=== PATIENT | male | born 1965 | race Caucasian/White ===

== ENCOUNTER → 2022-07-26 09:29 | Outpatient (CLI) | payer BC, SELFPAY ==
--- NOTE | 2022-07-26 09:32 | DI.US.S_ITS ---
PROCEDURE: US SCROTUM INDICATIONS: TESTICULAR MASS TECHNIQUE: Real-time scanning was performed of the scrotum and testicles, with image documentation. Color and pulse Doppler interrogation was performed of both testicles. COMPARISON: None. FINDINGS: Right: Testicle is normal in size at 4.5 x 2.4 x 3.2 cm, and homogenous in echotexture. Epididymis is normal in overall size and morphology. No hydrocele or varicoceles. Overlying scrotal skin is normal in thickness. Left: Testicle is normal in size at 4.2 x 2.2 x 2.8 cm, and homogeneous in echotexture. Epididymis is normal in overall size and morphology. No hydrocele . Prominent vessels are noted in left scrotum. Overlying scrotal skin is normal in thickness. Doppler: Color and pulse Doppler demonstrate normal and symmetric arterial flow in both testicles. IMPRESSION: Suggestion of mild left-sided varicoceles. Normal appearing bilateral testes and epididymi. No hydroceles. Dictated by: Kenyon Magdaleno M.D. on 07/26/2022 at 11:05 Approved by: Kenyon Magdaleno M.D. on 07/26/2022 at 11:06
== END ==
PROVIDERS: PCP Family Medicine; Referring Provider Family Medicine; Visit Provider Family Medicine
DX: N50.89 Other specified disorders of the male genital organs (principal)
CPT/HCPCS: 76870; 93976

== ENCOUNTER 2022-07-29 14:18 | Observation (INO) | payer BC, SELFPAY ==
[2022-07-29 14:33] VITALS: BP 161/79; PULSE 78; RESP 20; TEMP 36.9; O2SAT 97; BMI 38.3
[2022-07-29 17:00] LABS: Add Manual Diff / Slide Review NO; Basophils Absolute Auto 0 /uL (0-100); Basophils Percent Auto 0.3 % (0-2); Eosinophils Absolute Auto 100 /uL (0-450); Eosinophils Percent Auto 1.6 % (2-4); Hematocrit 40.4 % (41-53); Hemoglobin 14.1 g/dL (13.5-17.5); Lymphocytes Absolute Auto 1400 /uL (1100-4500); Mean Corpuscular Hemoglobin 29.4 PG (26-34); Monocytes Absolute Auto 600 /uL (0-900); Monocytes Percent Auto 8.9 % (3-14); Neutrophils Absolute Auto 4300 /uL (1500-7000); Neutrophils Percent Auto 67.2 % (50-75); Platelet Count 138 X10^3/uL (150-400); Red Blood Cell Count 4.81 X10^6/uL (4.5-5.9); White Blood Cell Count 6.4 X10^3/uL (4.5-11.0)
[2022-07-29 17:02] LABS: Alanine Aminotransferase 24 IU/L (<50); Albumin 4.2 g/dL (3.5-5.0); Albumin Globulin Ratio 1.6 (1.0-2.8); Alkaline Phosphatase 60 U/L (38-126); Aspartate Aminotransferase 27 IU/L (17-59); Bilirubin Total 0.8 mg/dL (0.2-1.3); Blood Urea Nitrogen 18 mg/dL (9-20); Carbon Dioxide 26 mmol/L (22-32); Chloride 104 mmol/L (98-107); Estimated Glomerular Filt Rate > 60 mL/min (>60); Globulin 2.7 g/dL (1.7-4.1); Glucose 92 mg/dL (70-100); HEMOLYSIS 16 (0-50); Lipase 536 U/L (23-300); Potassium 4.4 mmol/L (3.4-5.1); Sodium 136 mmol/L (137-145); Total Protein 6.9 g/dL (6.3-8.2)
[2022-07-29] MEDS: KETOROLAC 30 MG/ML VIAL IV (18:33)
--- NOTE | 2022-07-29 19:32 | DI.CT.S_ITS ---
PROCEDURE: CT ABDOMEN PELVIS W CON INDICATIONS: Stretcher/ eval pancreas TECHNIQUE: After the administration of IV contrast, axial sections were acquired from the lung bases to the pubic symphysis. Coronal and sagittal reformats were performed. For radiation dose reduction, the following was used: automated exposure control, adjustment of mA and/or kV according to patient size. COMPARISON: [facility], CT, KIDNEY/ URETER/BLADDER, 05/10/2016, 10:53. FINDINGS: Image quality: Excellent. Lung bases: There is minimal scarring in the lung bases. Heart: Heart is normal in size. ABDOMEN: Liver: No mass lesion. Gallbladder: There are few dependent calcified gallstones in the gallbladder without wall thickening or pericholecystic fluid. Biliary ducts: No biliary ductal dilatation. Pancreas: Unremarkable. Spleen: Normal in size. Adrenal Glands: No adrenal nodules. Kidneys and Ureters: No hydronephrosis. Stomach and Bowel: Stomach and small bowel loops are normal in caliber and wall thickness. The appendix is normal in appearance. There is colonic diverticulosis with associated diverticular and segmental colonic wall thickening in the sigmoid colon with pericolonic fat stranding and small amount of adjacent free fluid. The findings are consistent with acute diverticulitis. A small adjacent loculated fluid collection lateral to the sigmoid colon measuring up to 2.6 x 1.5 cm in transverse dimension on series 2, image 70 may reflect a small developing diverticular abscess. No macroscopic free air. Ventral Wall: There is a small fat-containing umbilical hernia. Abdominal Nodes: No retroperitoneal or mesenteric adenopathy by size criteria. Vessels: Aorta and inferior vena cava are normal in size. PELVIS: Pelvic Organs: Unremarkable. Bladder: Unremarkable. Pelvic Nodes: No enlarged lymph nodes. Miscellaneous: No inguinal hernias are seen. Bones: Visualized osseous structures demonstrate no suspicious focal lesions. IMPRESSION: 1. Acute diverticulitis in the sigmoid colon with an adjacent small pericolonic fluid collection suspicious for a developing diverticular abscess. No macroscopic free air. 2. Cholelithiasis without CT evidence of acute cholecystitis. Dictated by: Silviano Gage M.D. on 07/29/2022 at 20:44 Approved by: Silviano Gage M.D. on 07/29/2022 at 20:48
--- NOTE | 2022-07-29 19:38 | ED_ITS ---
HPI - Abdominal Pain <Ifeanyi Herrera PA-C - Last Filed: 07/29/22 19:49> General Chief Complaint: Abdominal Pain Stated Complaint: Abd pain x a wk Time Seen by Provider: 07/29/22 16:27 Source: patient Mode of arrival: Ambulatory History of Present Illness HPI narrative: Patient is a 56-year-old male who presents to the emergency room today with complaint of abdominal pain for 3 weeks. Describes abdominal pain as being mostly on the left side the lower abdomen. Patient has an associated lower mid abdominal pain the patient describes as being deep in the abdomen in the center below the umbilicus. States he was seen on Monday and ultrasound of his testicle done. Also sent in a center abdominal pain feels like cramps. The pain has been getting progressively worse over time and the patient is concerned with his health.. Denies any or GI concerns and also denies any chest pain or shortness of breath. Admits to being an alcoholic drink but very moderate to low consumption. Pain comes and goes and is about a 3 in 1 is the worst is about a 7. Related Data Home Medications Medication Instructions Recorded Confirmed ASCORBIC ACID (VITAMIN C) 500 mg PO Q DAY ##0 12/28/11 07/29/22 Fish Oil (#OMEGA-3) 1,000 mg PO Q DAY ##0 12/28/11 07/29/22 cholecalciferol (vitamin D3) 50 1,000 iu PO Q DAY ##0 12/28/11 07/29/22 mcg (2,000 unit) capsule (Vitamin D3) Allergies Allergy/AdvReac Type Severity Reaction Status Date / Time amoxicillin [AMOXICILLIN] Allergy Intermediate Verified 07/29/22 14:37 Review of Systems <Ifeanyi Herrera PA-C - Last Filed: 07/29/22 19:49> Review of Systems Narrative: R.O.S.: General: No fever, chills or fatigue. Cardiovascular: No chest pain or palpitations Respiratory: No S.O.B. HEENT: No congestion, ear pain, rhinorrhea, sore throat or tinnitus Gastrointestinal: Abdominal pain Skin: No rash or associated abnormalities Musculoskeletal: No pain in muscles or joints, no limitation of range of motion, no paresthesia or numbness. ?? Neurological: Awake, alert and in not apparent distress. No Headaches, changes in vision or other related neurological concerns. Patient History <Ifeanyi Herrera PA-C - Last Filed: 07/29/22 19:49> Surgical History (Updated 07/29/22 @ 23:24 by CLARICE Cheek) History of open reduction and internal fixation (ORIF) procedure Hx of arthroscopy Family History (Updated 07/29/22 @ 23:21 by CLARICE Cheek) Mother Alive and well Father COPD (chronic obstructive pulmonary disease) Social History household members: spouse Smoking Status: Former smoker alcohol intake: current Smoking Status: Former smoker alcohol intake frequency: a few times a week Substance Use Type: does not use Exam <Ifeanyi Herrera PA-C - Last Filed: 07/29/22 19:49> Initial Vital Signs Initial Vital Signs: Vital Signs Temperature 98.4 F 07/29/22 14:33 Pulse Rate 78 07/29/22 14:33 Respiratory Rate 20 07/29/22 14:33 Blood Pressure 161/79 H 07/29/22 14:33 Pulse Oximetry 97 07/29/22 14:33 Oxygen Delivery Method 07/29/22 14:33 <Paul Spain DO - Last Filed: 07/30/22 05:13> Initial Vital Signs Initial Vital Signs: Vital Signs Temperature 98.4 F 07/29/22 14:33 Pulse Rate 78 07/29/22 14:33 Respiratory Rate 20 07/29/22 14:33 Blood Pressure 161/79 H 07/29/22 14:33 Pulse Oximetry 97 07/29/22 14:33 Oxygen Delivery Method 07/29/22 14:33 Course <Ifeanyi Herrera PA-C - Last Filed: 07/29/22 19:49> Orders Ordered: ED Orders 07/29/22 21:35 COVID19 -Nasal RAPID/Pre-Proc Stat Acetaminophen (Acetaminophen 325 Mg Tablet) 650 mg PO Q6HR PRN PRN Reason: Fever/Mild Pain (1-3) Heparin Sodium (Porcine) (Heparin 5,000 Unit/Ml Vial) 5,000 unit SUBCUT BID [facility] Last Admin: 07/29/22 23:42 Dose: 5,000 unit Documented By: SH Sodium Chloride (Normal Saline 0.45%) 1,000 mls @ 100 mls/hr IV CONT [facility] Last Admin: 07/29/22 23:42 Dose: 100 mls/hr Documented By: AYDEN Levofloxacin (Levaquin) 750 mg in 150 mls @ 100 mls/hr IV Q24H [facility] Metronidazole (Flagyl) 500 mg in 100 mls @ 100 mls/hr IV Q6H [facility] Last Admin: 07/30/22 03:46 Dose: 100 mls/hr Documented By: AYDEN Ondansetron HCl (Ondansetron 4 Mg/2 Ml Inj) 4 mg IV Q6HR PRN PRN Reason: Nausea And Vomiting Tramadol HCl (Tramadol 50 Mg Tablet) 50 mg PO Q4H PRN PRN Reason: Pain, Moderate (4-6) Discontinued Medications Metronidazole (Flagyl) 500 mg in 100 mls @ 100 mls/hr IV NOW ONE Stop: 07/29/22 22:19 Last Infusion: 07/30/22 00:23 Dose: 0 mls/hr Documented By: Admin: 07/29/22 23:23 Dose: 100 mls/hr Documented By: AYDEN Levofloxacin (Levaquin) 750 mg in 150 mls @ 100 mls/hr IV NOW ONE Stop: 07/29/22 22:51 Last Infusion: 07/29/22 23:10 Dose: 0 mls/hr Documented By: Admin: 07/29/22 21:39 Dose: 100 mls/hr Documented By: PAULETTE Ketorolac Tromethamine (Ketorolac 30 Mg/Ml Vial) 30 mg IV NOW ONE Stop: 07/29/22 18:26 Last Admin: 07/29/22 18:33 Dose: 30 mg Documented By: [facility] Vital Signs Vital signs: Vital Signs - 8 hr 07/29/22 14:33 Temperature 98.4 F Pulse Rate 78 Respiratory Rate 20 Blood Pressure 161/79 H Pulse Oximetry 97 Oxygen Delivery Method Room Air <Paul Spain DO - Last Filed: 07/30/22 05:13> Orders Ordered: ED Orders 07/29/22 21:35 COVID19 -Nasal RAPID/Pre-Proc Stat Acetaminophen (Acetaminophen 325 Mg Tablet) 650 mg PO Q6HR PRN PRN Reason: Fever/Mild Pain (1-3) Heparin Sodium (Porcine) (Heparin 5,000 Unit/Ml Vial) 5,000 unit SUBCUT BID [facility] Last Admin: 07/29/22 23:42 Dose: 5,000 unit Documented By: AYDEN Sodium Chloride (Normal Saline 0.45%) 1,000 mls @ 100 mls/hr IV CONT [facility] Last Admin: 07/29/22 23:42 Dose: 100 mls/hr Documented By: AYDEN Levofloxacin (Levaquin) 750 mg in 150 mls @ 100 mls/hr IV Q24H [facility] Metronidazole (Flagyl) 500 mg in 100 mls @ 100 mls/hr IV Q6H [facility] Last Admin: 07/30/22 03:46 Dose: 100 mls/hr Documented By: AYDEN Ondansetron HCl (Ondansetron 4 Mg/2 Ml Inj) 4 mg IV Q6HR PRN PRN Reason: Nausea And Vomiting Tramadol HCl (Tramadol 50 Mg Tablet) 50 mg PO Q4H PRN PRN Reason: Pain, Moderate (4-6) Discontinued Medications Metronidazole (Flagyl) 500 mg in 100 mls @ 100 mls/hr IV NOW ONE Stop: 07/29/22 22:19 Last Infusion: 07/30/22 00:23 Dose: 0 mls/hr Documented By: Admin: 07/29/22 23:23 Dose: 100 mls/hr Documented By: AYDEN Levofloxacin (Levaquin) 750 mg in 150 mls @ 100 mls/hr IV NOW ONE Stop: 07/29/22 22:51 Last Infusion: 07/29/22 23:10 Dose: 0 mls/hr Documented By: Admin: 07/29/22 21:39 Dose: 100 mls/hr Documented By: PAULETTE Ketorolac Tromethamine (Ketorolac 30 Mg/Ml Vial) 30 mg IV NOW ONE Stop: 07/29/22 18:26 Last Admin: 07/29/22 18:33 Dose: 30 mg Documented By: [facility] Vital Signs Vital signs: Vital Signs - 8 hr 07/29/22 14:33 Temperature 98.4 F Pulse Rate 78 Respiratory Rate 20 Blood Pressure 161/79 H Pulse Oximetry 97 Oxygen Delivery Method Room Air MDM - Abdominal Pain <Ifeanyi Herrera PA-C - Last Filed: 07/29/22 19:49> Lab Data Result diagrams: 07/29/22 16:32 07/29/22 16:32 Labs: Lab Results 07/29/22 07/29/22 07/29/22 Range/Units 16:32 16:32 20:04 WBC 6.4 (4.5-11.0) X10^3/uL RBC 4.81 (4.5-5.9) X10^6/uL Hgb 14.1 (13.5-17.5) g/dL Hct 40.4 L (41-53) % MCV 84.0 (80-100) fL MCH 29.4 (26-34) PG MCHC 35.0 (30-36) % RDW 15.0 H (11.6-14.8) % Plt Count 138 L (150-400) X10^3/uL Neut % (Auto) 67.2 (50-75) % Lymph % (Auto) 22.0 L (25-40) % [place] % (Auto) 8.9 (3-14) % Eos % (Auto) 1.6 L (2-4) % Baso % (Auto) 0.3 (0-2) % Neut # (Auto) 4300 (8190-9601) /uL Lymph # (Auto) 1400 (2289-4612) /uL [place] # (Auto) 600 (0-900) /uL Eos # (Auto) 100 (0-450) /uL Baso # (Auto) 0 (0-100) /uL Sodium 136 L (137-145) mmol/L Potassium 4.4 (3.4-5.1) mmol/L Chloride 104 (98-107) mmol/L Carbon Dioxide 26 (22-32) mmol/L BUN 18 (9-20) mg/dL Creatinine 0.90 (0.66-1.25) mg/dL Estimated GFR > 60 (>60) mL/min BUN/Creatinine Ratio 20.0 (6-22) Glucose 92 (70-100) mg/dL Calcium 9.0 (8.4-10.2) mg/dL Total Bilirubin 0.8 (0.2-1.3) mg/dL AST 27 (17-59) IU/L ALT 24 (<50) IU/L Alkaline Phosphatase 60 (38-126) U/L Total Protein 6.9 (6.3-8.2) g/dL Albumin 4.2 (3.5-5.0) g/dL Globulin 2.7 (1.7-4.1) g/dL Albumin/Globulin Ratio 1.6 (1.0-2.8) Lipase 536 H (23-300) U/L Urine Color Yellow Urine Appearance Sl cloudy Urine pH 7.0 (4.5-8.0) Ur Specific [place] 1.015 (1.000-1.035) Urine Protein Negative (Negative) Urine Glucose (UA) Negative (Negative) g/dL Urine Ketones Negative (NEGATIVE) Urine Occult Blood Negative (Negative) Urine Nitrate Negative (Negative) Urine Bilirubin Negative (NEGATIVE) Urine Urobilinogen 0.2 (0.2) E.U./dL Ur Leukocyte Esterase Negative (NEGATIVE) Urine RBC None seen (0-5/HPF) Urine WBC 0-1/hpf (0-5/HPF) Ur Squamous Epith Cells 0-1 /hpf (0-5/HPF) Amorphous Sediment 2+ Urine Bacteria None seen (None) Urine Mucus 2+ H (Negative) Ur Culture Indicated? Cult not indicated SARS-CoV-2 (PCR) (Negative) 07/29/22 Range/Units 21:35 WBC (4.5-11.0) X10^3/uL RBC (4.5-5.9) X10^6/uL Hgb (13.5-17.5) g/dL Hct (41-53) % MCV (80-100) fL MCH (26-34) PG MCHC (30-36) % RDW (11.6-14.8) % Plt Count (150-400) X10^3/uL Neut % (Auto) (50-75) % Lymph % (Auto) (25-40) % [place] % (Auto) (3-14) % Eos % (Auto) (2-4) % Baso % (Auto) (0-2) % Neut # (Auto) (8504-8893) /uL Lymph # (Auto) (6617-0607) /uL [place] # (Auto) (0-900) /uL Eos # (Auto) (0-450) /uL Baso # (Auto) (0-100) /uL Sodium (137-145) mmol/L Potassium (3.4-5.1) mmol/L Chloride (98-107) mmol/L Carbon Dioxide (22-32) mmol/L BUN (9-20) mg/dL Creatinine (0.66-1.25) mg/dL Estimated GFR (>60) mL/min BUN/Creatinine Ratio (6-22) Glucose (70-100) mg/dL Calcium (8.4-10.2) mg/dL Total Bilirubin (0.2-1.3) mg/dL AST (17-59) IU/L ALT (<50) IU/L Alkaline Phosphatase (38-126) U/L Total Protein (6.3-8.2) g/dL Albumin (3.5-5.0) g/dL Globulin (1.7-4.1) g/dL Albumin/Globulin Ratio (1.0-2.8) Lipase (23-300) U/L Urine Color Urine Appearance Urine pH (4.5-8.0) Ur Specific [place] (1.000-1.035) Urine Protein (Negative) Urine Glucose (UA) (Negative) g/dL Urine Ketones (NEGATIVE) Urine Occult Blood (Negative) Urine Nitrate (Negative) Urine Bilirubin (NEGATIVE) Urine Urobilinogen (0.2) E.U./dL Ur Leukocyte Esterase (NEGATIVE) Urine RBC (0-5/HPF) Urine WBC (0-5/HPF) Ur Squamous Epith Cells (0-5/HPF) Amorphous Sediment Urine Bacteria (None) Urine Mucus (Negative) Ur Culture Indicated? SARS-CoV-2 (PCR) Negative (Negative) Imaging Data US testicle: Radiologist's Impression: PROCEDURE:? US SCROTUM ? INDICATIONS:? TESTICULAR MASS ? TECHNIQUE:? Real-time scanning was performed of the scrotum and testicles, with image documentation.? Color and pulse Doppler interrogation was performed of both testicles.? ? COMPARISON:? None. ? FINDINGS:? ? Right:? Testicle is normal in size at 4.5 x 2.4 x 3.2 cm, and homogenous in echotexture.? Epididymis is normal in overall size and morphology.? No hydrocele or varicoceles.? Overlying scrotal skin is normal in thickness.? ? Left:? Testicle is normal in size at 4.2 x 2.2 x 2.8 cm, and homogeneous in echotexture.? Epididymis is normal in overall size and morphology.? No hydrocele .? Prominent vessels are noted in left scrotum.? Overlying scrotal skin is normal in thickness.? ? Doppler:? Color and pulse Doppler demonstrate normal and symmetric arterial flow in both testicles.? ? IMPRESSION:? Suggestion of mild left-sided varicoceles.? Normal appearing bilateral testes and epididymi.? No hydroceles.? ? ? Dictated by: Kenyon Magdaleno M.D. on 07/26/2022 at 11:05 ? ? Approved by: Kenyon Magdaleno M.D. on 07/26/2022 at 11:06? MDM Narrative Medical decision making narrative: Patient is a 55-year-old male who presents to the emergency room today with complaint of lower abdominal pain for III weeks. States pain is mostly in his lower left and mid abdomen. Initially thought the pain was related to his left testicle and had an ultrasound done Monday. Ultrasound results revealed mild left-sided varicoceles and otherwise normal exam. Labs ordered and revealed an elevated lipase of 536. Physical exam revealed vague discomfort in the mid lower abdominal area. Exam was otherwise unremarkable. CT scan of the abdomen and pelvis with contrast was ordered to rule out any emergent concerns. <Paul Spain, DO - Last Filed: 07/30/22 05:13> Lab Data Labs: Lab Results 07/29/22 07/29/22 07/29/22 Range/Units 16:32 16:32 20:04 WBC 6.4 (4.5-11.0) X10^3/uL RBC 4.81 (4.5-5.9) X10^6/uL Hgb 14.1 (13.5-17.5) g/dL Hct 40.4 L (41-53) % MCV 84.0 (80-100) fL MCH 29.4 (26-34) PG MCHC 35.0 (30-36) % RDW 15.0 H (11.6-14.8) % Plt Count 138 L (150-400) X10^3/uL Neut % (Auto) 67.2 (50-75) % Lymph % (Auto) 22.0 L (25-40) % [place] % (Auto) 8.9 (3-14) % Eos % (Auto) 1.6 L (2-4) % Baso % (Auto) 0.3 (0-2) % Neut # (Auto) 4300 (6914-4962) /uL Lymph # (Auto) 1400 (9743-9974) /uL [place] # (Auto) 600 (0-900) /uL Eos # (Auto) 100 (0-450) /uL Baso # (Auto) 0 (0-100) /uL Sodium 136 L (137-145) mmol/L Potassium 4.4 (3.4-5.1) mmol/L Chloride 104 (98-107) mmol/L Carbon Dioxide 26 (22-32) mmol/L BUN 18 (9-20) mg/dL Creatinine 0.90 (0.66-1.25) mg/dL Estimated GFR > 60 (>60) mL/min BUN/Creatinine Ratio 20.0 (6-22) Glucose 92 (70-100) mg/dL Calcium 9.0 (8.4-10.2) mg/dL Total Bilirubin 0.8 (0.2-1.3) mg/dL AST 27 (17-59) IU/L ALT 24 (<50) IU/L Alkaline Phosphatase 60 (38-126) U/L Total Protein 6.9 (6.3-8.2) g/dL Albumin 4.2 (3.5-5.0) g/dL Globulin 2.7 (1.7-4.1) g/dL Albumin/Globulin Ratio 1.6 (1.0-2.8) Lipase 536 H (23-300) U/L Urine Color Yellow Urine Appearance Sl cloudy Urine pH 7.0 (4.5-8.0) Ur Specific [place] 1.015 (1.000-1.035) Urine Protein Negative (Negative) Urine Glucose (UA) Negative (Negative) g/dL Urine Ketones Negative (NEGATIVE) Urine Occult Blood Negative (Negative) Urine Nitrate Negative (Negative) Urine Bilirubin Negative (NEGATIVE) Urine Urobilinogen 0.2 (0.2) E.U./dL Ur Leukocyte Esterase Negative (NEGATIVE) Urine RBC None seen (0-5/HPF) Urine WBC 0-1/hpf (0-5/HPF) Ur Squamous Epith Cells 0-1 /hpf (0-5/HPF) Amorphous Sediment 2+ Urine Bacteria None seen (None) Urine Mucus 2+ H (Negative) Ur Culture Indicated? Cult not indicated SARS-CoV-2 (PCR) (Negative) 07/29/22 Range/Units 21:35 WBC (4.5-11.0) X10^3/uL RBC (4.5-5.9) X10^6/uL Hgb (13.5-17.5) g/dL Hct (41-53) % MCV (80-100) fL MCH (26-34) PG MCHC (30-36) % RDW (11.6-14.8) % Plt Count (150-400) X10^3/uL Neut % (Auto) (50-75) % Lymph % (Auto) (25-40) % [place] % (Auto) (3-14) % Eos % (Auto) (2-4) % Baso % (Auto) (0-2) % Neut # (Auto) (4256-5182) /uL Lymph # (Auto) (6400-3620) /uL [place] # (Auto) (0-900) /uL Eos # (Auto) (0-450) /uL Baso # (Auto) (0-100) /uL Sodium (137-145) mmol/L Potassium (3.4-5.1) mmol/L Chloride (98-107) mmol/L Carbon Dioxide (22-32) mmol/L BUN (9-20) mg/dL Creatinine (0.66-1.25) mg/dL Estimated GFR (>60) mL/min BUN/Creatinine Ratio (6-22) Glucose (70-100) mg/dL Calcium (8.4-10.2) mg/dL Total Bilirubin (0.2-1.3) mg/dL AST (17-59) IU/L ALT (<50) IU/L Alkaline Phosphatase (38-126) U/L Total Protein (6.3-8.2) g/dL Albumin (3.5-5.0) g/dL Globulin (1.7-4.1) g/dL Albumin/Globulin Ratio (1.0-2.8) Lipase (23-300) U/L Urine Color Urine Appearance Urine pH (4.5-8.0) Ur Specific [place] (1.000-1.035) Urine Protein (Negative) Urine Glucose (UA) (Negative) g/dL Urine Ketones (NEGATIVE) Urine Occult Blood (Negative) Urine Nitrate (Negative) Urine Bilirubin (NEGATIVE) Urine Urobilinogen (0.2) E.U./dL Ur Leukocyte Esterase (NEGATIVE) Urine RBC (0-5/HPF) Urine WBC (0-5/HPF) Ur Squamous Epith Cells (0-5/HPF) Amorphous Sediment Urine Bacteria (None) Urine Mucus (Negative) Ur Culture Indicated? SARS-CoV-2 (PCR) Negative (Negative) Imaging Data CT scan - abdomen/pelvis: Radiologist's Impression: [address] [address] [address] Scan Report Signed Patient: Vinod Kulkarni MR#: [id number] : 1965 Acct:[id number] Age/Sex: 56 / M Date of Service: 07/29/22 Loc: ED Accession Number: [id number] ?? Procedure: CT abdomen pelvis w con Ordering Provider: Ifeanyi Herrera P.A-C PROCEDURE:? CT ABDOMEN PELVIS W CON ? INDICATIONS:? Stretcher/ eval pancreas ? TECHNIQUE:? After the administration of IV contrast, axial sections were acquired from the lung bases to the pubic symphysis.? Coronal and sagittal reformats were performed.? For radiation dose reduction, the following was used:? automated exposure control, adjustment of mA and/or kV according to patient size. ? COMPARISON:? [facility], CT, KIDNEY/ URETER/BLADDER, 05/10/2016, 10:53. ? FINDINGS:? Image quality:? Excellent.? ? Lung bases:? There is minimal scarring in the lung bases.? ? Heart:? Heart is normal in size. ? ? ABDOMEN: Liver:? No mass lesion. Gallbladder:? There are few dependent calcified gallstones in the gallbladder without wall thickening or pericholecystic fluid. Biliary ducts:? No biliary ductal dilatation.? ? Pancreas:? Unremarkable.? ? Spleen:? Normal in size.? ? Adrenal Glands:? No adrenal nodules.? ? Kidneys and Ureters:? No hydronephrosis.? ? ? Stomach and Bowel:? Stomach and small bowel loops are normal in caliber and wall thickness.? The appendix is normal in appearance.? There is colonic diverticulosis with associated diverticular and segmental colonic wall thickening in the sigmoid colon with pericolonic fat stranding and small amount of adjacent free fluid.? The findings are consistent with acute diverticulitis.? A small adjacent loculated fluid collection lateral to the sigmoid colon measuring up to 2.6 x 1.5 cm in transverse dimension on series 2, image 70 may reflect a small developing diverticular abscess.? No macroscopic free air.? ? Ventral Wall: ? There is a small fat-containing umbilical hernia. Abdominal Nodes:? No retroperitoneal or mesenteric adenopathy by size criteria.? Vessels:? Aorta and inferior vena cava are normal in size.? ? PELVIS: Pelvic Organs:? Unremarkable.? ? Bladder:? Unremarkable.? ? Pelvic Nodes: No enlarged lymph nodes.? Miscellaneous: No inguinal hernias are seen. ? ? ? Bones:? Visualized osseous structures demonstrate no suspicious focal lesions. ? IMPRESSION:? ? 1.? Acute diverticulitis in the sigmoid colon with an adjacent small pericolonic fluid collection suspicious for a developing diverticular abscess.? No macroscopic free air. ? 2. Cholelithiasis without CT evidence of acute cholecystitis. ? ? Dictated by: Silviano Gage M.D. on 07/29/2022 at 20:44 ? ? Approved by: Silviano Gage M.D. on 07/29/2022 at 20:48 ? Discharge Plan Departure Patient Disposition: Admitted As Inpatient Clinical Impression: Diverticulitis Admit Date/Time: 07/29/22 22:37 Admit Provider: Cheri Madden
[2022-07-29 20:07] LABS: Appearance Urine UA SL CLOUDY; Bilirubin Urine UA NEGATIVE (NEGATIVE); Color Urine UA YELLOW; Glucose Urine UA NEGATIVE (Negative); Ketones Urine UA NEGATIVE (NEGATIVE); Leukocyte Esterase Urine UA NEGATIVE (NEGATIVE); Nitrite Urine UA NEGATIVE (Negative); Occult Blood Urine UA NEGATIVE (Negative); Protein Urine UA NEGATIVE (Negative); Specific Gravity Urine UA 1.015 (1.000-1.035); Urobilinogen Urine UA 0.2 E.U./dL (0.2)
[2022-07-29 20:16] LABS: RBC Urine None Seen (0-5/HPF); WBC Urine 0-1/HPF (0-5/HPF)
[2022-07-29 20:17] LABS: Amorphous Sediment Urine 2+; Bacteria Urine None Seen; Culture Indicated Urine Cult Not Indicated; Mucus Urine 2+ (Negative); Squamous Epithelial Cell Urine 0-1 /HPF (0-5/HPF)
[2022-07-29] MEDS: levoFLOXacin 750 MG/150 ML PIGGYBACK 100 MG IV (21:39)
[2022-07-29 22:12] LABS: COVID19 -Nasal RAPID Negative (Negative)
[2022-07-29 22:45] VITALS: BMI 38.4
[2022-07-29 23:10] VITALS: BP 124/83; PULSE 70; RESP 17; TEMP 36.7; O2SAT 96
--- NOTE | 2022-07-29 23:20 | P.HP_ITS ---
History of Present Illness History of Present Illness Date Patient Seen: 07/29/22 Time Patient Seen: 23:20 Chief complaint: Abd pain x a wk Narrative: Vinod Kulkarni is a 56-year-old male with no stated chronic health history presented to the emergency department after seeing his PCP on [facility] last Monday. He came over to the hospital for a ultrasound of his scrotum as he had been dealing with an abnormal scrotal exam with concerns with issues with his vas deferens. He states that has been going on for several weeks but got increasingly worst in the past week. He states it is a squeezing pain behind his pubis area going from a pain level of 3 up to a 7. He denies fevers sweats or chills, shortness of breath, chest pain, he does endorse having some nausea but no vomiting, denies any dysuria or changes in urinary stream, he has had soft stool but not diarrhea and denies constipation. He denies any upper or lower extremity tingling. In the emergency department they did CT scan of the abdomen and pelvis and was found to have acute diverticulitis in the sigmoid colon with concern for a developing diverticular abscess. He was initiated on IV Levaquin and metronidazole and requested for admission. They did consult with Dr. Farr, general surgery. He is afebrile, blood pressure 161/79, heart rate 78, respiratory rate 20, oxygen saturation of 97% on room air he weighs 125 kg with a BMI of 38.4. His WBC is unremarkable however he does have a low platelet count of 138 sodium 136 lipase 536 UA is negative for UTI and COVID-19 PCR is negative. Patient History Surgical History (Updated 07/29/22 @ 23:24 by CLARICE Cheek) History of open reduction and internal fixation (ORIF) procedure Hx of arthroscopy Family & Social History Family History (Updated 07/29/22 @ 23:21 by CLARICE Cheek) Mother Alive and well Father COPD (chronic obstructive pulmonary disease) Social History: household members spouse Prior Living Arrangements House Safety & Behavioral: Feels Safe in Current Yes Environment Been Physically Hurt or No Threatened By a Person Tobacco & Substance use: Tobacco type cigarettes Smoking Status Former smoker quit early alcohol intake current alcohol intake frequency a few times a week Substance Use Type does not use Meds Home Medications and Allergies Home Medications Medication Instructions Recorded Confirmed Type ASCORBIC ACID (VITAMIN C) 500 mg PO Q DAY ##0 12/28/11 07/29/22 History Fish Oil (#OMEGA-3) 1,000 mg PO Q DAY ##0 12/28/11 07/29/22 History cholecalciferol (vitamin D3) 50 1,000 iu PO Q DAY ##0 12/28/11 07/29/22 History mcg (2,000 unit) capsule (Vitamin D3) Allergies Allergy/AdvReac Type Severity Reaction Status Date / Time amoxicillin [AMOXICILLIN] Allergy Intermediate Verified 07/29/22 14:37 Review of Systems Review of Systems ROS: Yes All systems reviewed with the patient and are negative except as otherwise documented Exam Vital Signs (past 8 hours): Oxygen Delivery Method Room Air Narrative Exam Narrative: Gen: Alert, oriented, obese 56 y.o. male, NAD HEENT: normocephalic, atraumatic, conjunctiva clear, sclera non-icteric, oral mucosa pink and moist Neck: supple, full ROM, no JVD, trachea is midline Resp: Lungs CTA, non-labored breathing CV: RRR, no murmur or rubs Abd: obese, slightly distended tender in lower pelvis, normoactive BTs Skin: no lesions or rashes, dry and intact Neuro: Alert and oriented X 4 w/no focal deficits. Speech clear and coherent. Extremities: moves all 4 extremities, is ambulatory, negative Cyndy?s sign Psyche: normal mood and affect. Objective Labs Result Diagrams: 07/29/22 16:32 07/29/22 16:32 Labs: Laboratory Results - last 24 hr 07/29/22 07/29/22 07/29/22 16:32 16:32 20:04 WBC 6.4 RBC 4.81 Hgb 14.1 Hct 40.4 L MCV 84.0 MCH 29.4 MCHC 35.0 RDW 15.0 H Plt Count 138 L Neut % (Auto) 67.2 Lymph % (Auto) 22.0 L [place] % (Auto) 8.9 Eos % (Auto) 1.6 L Baso % (Auto) 0.3 Neut # (Auto) 4300 Lymph # (Auto) 1400 [place] # (Auto) 600 Eos # (Auto) 100 Baso # (Auto) 0 Sodium 136 L Potassium 4.4 Chloride 104 Carbon Dioxide 26 BUN 18 Creatinine 0.90 Estimated GFR > 60 BUN/Creatinine Ratio 20.0 Glucose 92 Calcium 9.0 Total Bilirubin 0.8 AST 27 ALT 24 Alkaline Phosphatase 60 Total Protein 6.9 Albumin 4.2 Globulin 2.7 Albumin/Globulin Ratio 1.6 Lipase 536 H Urine Color Yellow Urine Appearance Sl cloudy Urine pH 7.0 Ur Specific [place] 1.015 Urine Protein Negative Urine Glucose (UA) Negative Urine Ketones Negative Urine Occult Blood Negative Urine Nitrate Negative Urine Bilirubin Negative Urine Urobilinogen 0.2 Ur Leukocyte Esterase Negative Urine RBC None seen Urine WBC 0-1/hpf Ur Squamous Epith Cells 0-1 /hpf Amorphous Sediment 2+ Urine Bacteria None seen Urine Mucus 2+ H Ur Culture Indicated? Cult not indicated SARS-CoV-2 (PCR) 07/29/22 21:35 WBC RBC Hgb Hct MCV MCH MCHC RDW Plt Count Neut % (Auto) Lymph % (Auto) [place] % (Auto) Eos % (Auto) Baso % (Auto) Neut # (Auto) Lymph # (Auto) [place] # (Auto) Eos # (Auto) Baso # (Auto) Sodium Potassium Chloride Carbon Dioxide BUN Creatinine Estimated GFR BUN/Creatinine Ratio Glucose Calcium Total Bilirubin AST ALT Alkaline Phosphatase Total Protein Albumin Globulin Albumin/Globulin Ratio Lipase Urine Color Urine Appearance Urine pH Ur Specific [place] Urine Protein Urine Glucose (UA) Urine Ketones Urine Occult Blood Urine Nitrate Urine Bilirubin Urine Urobilinogen Ur Leukocyte Esterase Urine RBC Urine WBC Ur Squamous Epith Cells Amorphous Sediment Urine Bacteria Urine Mucus Ur Culture Indicated? SARS-CoV-2 (PCR) Negative Assessment & Plan Assessment & Plan narrative: Vinod Kulkarni is admitted for antibiotic treatment of acute diverticulitis. Acute diverticulitis, present on admission * He was initiated on IV Levaquin 750 mg and IV metronidazole 500 mg and will be continued. IV Levaquin 750 once daily and IV metronidazole 500 mg q.6 hours * He will receive IV normal saline at 100 mL/hour, clear liquid diet * Dr. Farr will consult on the patient VTE Prophylaxis: Wells risk score 0 heparin 5000 units b.i.d. X Bilateral SCDs Patient is admitted to the inpatient service due to the severity of disease, risks of further disease progression and this stay is expected to exceed 2 midnights. FEN: IV fluids: NS at 100ml/hour, diet: clears, labs: CBC, C/BMP, liver enzymes, Mag, PT/INR Consultants Dr. Farr care and involvement in the patient?s care is appreciated. Dispo: probable discharge to home Code status: Full Code as discussed with the patient who identifies his , Cassandra (Katie) as his surrogate and POA. [X] I have utilized all available immediate resources to obtain, update, or review of the patient's current medications COVID-19 COVID-19 status: Negative Result date/Date tested (Pos, Neg/Pending): 07/29/22 Scores Wells' Criteria for PE Clinical signs and symptoms of DVT: No PE is #1 Dx or equally likely: No Heart rate > 100: No Immobilization at least 3 days or surg in previous 4 weeks: No History of PE or DVT: No Malignancy w/Treatment within 6 months or palliative: No Quality VTE Deep Vein Thrombosis/Pulmonary Embolism Present on Admission: No MIPS - Admit I confirm the patient?s Advance Care Plan is present, Code status is documented, Surrogate decision maker is in patient?s record [If Yes, STOP here]: Yes MIPS - DC The patient has current or prior documentation of left ventricular ejection fraction (LVEF) less than 40%, or moderate or severely depressed left ventricular systolic function.: No
[2022-07-29] MEDS: metroNIDAZOLE 500 MG/100 ML PIGGYBACK 100 MG IV (23:23)
[2022-07-29] MEDS: SODIUM CHLORIDE 0.45% 1,000 ML 100 ML IV (23:42)
[2022-07-29] MEDS: HEPARIN 5,000 UNIT/ML VIAL 5000 UNIT SUBCUT (23:42)
[2022-07-30] MEDS: metroNIDAZOLE 500 MG/100 ML PIGGYBACK 100 MG IV ×2 (03:46→09:37)
[2022-07-30 05:01] VITALS: BP 118/77; PULSE 57; RESP 17; TEMP 36.8; O2SAT 97
--- NOTE | 2022-07-30 05:43 | PC.NURSE ---
Patient admitted to AC unit at 22:25 from ED. A/O x 4, able to make needs known. Patient started on 1/2NS @ 100. IV Flagyl running now. Has stated he is comfortable throughout the night and has not needed any pain medication. Shown how to use call light, bed in low position and brakes are locked.
[2022-07-30 05:49] LABS: Add Manual Diff / Slide Review NO; Basophils Absolute Auto 0 /uL (0-100); Basophils Percent Auto 0.3 % (0-2); Eosinophils Absolute Auto 100 /uL (0-450); Eosinophils Percent Auto 2.2 % (2-4); Hematocrit 37.5 % (41-53); Hemoglobin 13.2 g/dL (13.5-17.5); Lymphocytes Absolute Auto 1000 /uL (1100-4500); Lymphocytes Percent Auto 23.9 % (25-40); Mean Corpuscular HGB Conc 35.1 % (30-36); Mean Corpuscular Hemoglobin 29.5 PG (26-34); Mean Corpuscular Volume 84.1 fL (80-100); Monocytes Absolute Auto 400 /uL (0-900); Monocytes Percent Auto 8.2 % (3-14); Neutrophils Absolute Auto 2900 /uL (1500-7000); Neutrophils Percent Auto 65.4 % (50-75); Platelet Count 116 X10^3/uL (150-400); Red Blood Cell Count 4.46 X10^6/uL (4.5-5.9); Red Cell Distribution Width 15.2 % (11.6-14.8); White Blood Cell Count 4.4 X10^3/uL (4.5-11.0)
[2022-07-30 05:57] LABS: Alanine Aminotransferase 20 IU/L (<50); Albumin 3.7 g/dL (3.5-5.0); Albumin Globulin Ratio 1.4 (1.0-2.8); Alkaline Phosphatase 49 U/L (38-126); Aspartate Aminotransferase 23 IU/L (17-59); BUN Creatinine Ratio 20.4 (6-22); Bilirubin Total 1.2 mg/dL (0.2-1.3); Blood Urea Nitrogen 20 mg/dL (9-20); Calcium 8.4 mg/dL (8.4-10.2); Carbon Dioxide 29 mmol/L (22-32); Chloride 101 mmol/L (98-107); Estimated Glomerular Filt Rate > 60 mL/min (>60); Globulin 2.6 g/dL (1.7-4.1); Glucose 111 mg/dL (70-100); HEMOLYSIS < 15 (0-50); Magnesium 2.1 mg/dL (1.6-2.3); Potassium 4.4 mmol/L (3.4-5.1); Sodium 134 mmol/L (137-145); Total Protein 6.3 g/dL (6.3-8.2)
[2022-07-30] MEDS: HEPARIN 5,000 UNIT/ML VIAL 5000 UNIT SUBCUT (09:37)
[2022-07-30 09:45] VITALS: O2SAT 97
[2022-07-30 11:44] VITALS: BP 143/86; PULSE 60; RESP 20; TEMP 36.8; O2SAT 94
--- NOTE | 2022-07-30 12:19 | CM.DANOTE ---
Initial Discharge Planning Note: Met with patient and spouse. Introduced self and role. Payer [employer] [place] and self pay. 56 year old male from [facility] admitted yesterday pm with abdominal pain for a week. He has been diagnosed with diverticulitis per patient. On IV antibiotics here. He lives with spouse and works at [employer] on [facility]. He is independent at baseline and wishes to return home upon discharge. P: Discharge home with spouse when medically cleared. JOE Discharge Planning/Care Management CM Discharge Assessment Start: 07/30/22 12:15 Freq: Status: Active Protocol: Document 07/30/22 12:15 (Rec: 07/30/22 12:18 [id number]) Discharge Planning Assessment Assigned Drag Out Man Glendy Steen RN/KORINP Advance Directives? No History Provided By Patient,Medical Record Prior Living Arrangements House [facility] Household Members spouse Type of transporation used prior to Drives own vehicle admit Independent with ADL's Yes Is patient alert and oriented? Yes Barriers to Discharge No Discharge Plan Home Review Status In Process Next Review Type Continued Stay Review
--- NOTE | 2022-07-30 14:15 | PM.DS.1 ---
History of Present Illness History of Present Illness Date Patient Seen: 07/30/22 Chief complaint: Abd pain x a wk Narrative: CLARICE Briggs: Vinod Kulkarni is a 56-year-old male with no stated chronic health history presented to the emergency department after seeing his PCP on [facility] last Monday. He came over to the hospital for a ultrasound of his scrotum as he had been dealing with an abnormal scrotal exam with concerns with issues with his vas deferens. He states that has been going on for several weeks but got increasingly worst in the past week. He states it is a squeezing pain behind his pubis area going from a pain level of 3 up to a 7. He denies fevers sweats or chills, shortness of breath, chest pain, he does endorse having some nausea but no vomiting, denies any dysuria or changes in urinary stream, he has had soft stool but not diarrhea and denies constipation. He denies any upper or lower extremity tingling. In the emergency department they did CT scan of the abdomen and pelvis and was found to have acute diverticulitis in the sigmoid colon with concern for a developing diverticular abscess. He was initiated on IV Levaquin and metronidazole and requested for admission. They did consult with Dr. Farr, general surgery. He is afebrile, blood pressure 161/79, heart rate 78, respiratory rate 20, oxygen saturation of 97% on room air he weighs 125 kg with a BMI of 38.4. His WBC is unremarkable however he does have a low platelet count of 138 sodium 136 lipase 536 UA is negative for UTI and COVID-19 PCR is negative. Discharge Providers Provider Date of admission: 07/29/22 22:37 Discharge Date: 07/30/22 Primary care physician: Basilio Omalley MD Discharge provider: Gurvinder Rosenthal DO Summary Hospital Course Discharge Diagnosis: Acute diverticulitis with abscess, present on admission Obesity with BMI 38.4 Hospital Course: This is a 56 year old male with no significant PMH who was admitted for diverticulitis with a small abscess. He was given pain medication and antibiotics and rapidly improved. The following day his pain was much improved and he was tolerating a diet, ambulating in the hallway without difficulty. He was discharged home to complete 2 week course of antibiotics given his small diverticular abscess. He was given return precautions including worsening pain and fever. He should follow up with his PCP next week if possible to check on symptoms. Obesity increases patient's risk of complications from and increases likelihood of developing diverticular disease. Exam Vital Signs (past 8 hours): - 07/30/22 09:45 07/30/22 11:44 Temperature 98.3 F Pulse Rate 60 Respiratory Rate 20 Blood Pressure 143/86 H Pulse Oximetry 97 94 Oxygen Delivery Method Room Air Oxygen Flow Rate 0 0 Oxygen Delivery Method Room Air Oxygen Flow Rate 0 Narrative Exam Narrative: Gen: Alert, oriented, obese 56 y.o. male, NAD HEENT: normocephalic, atraumatic, conjunctiva clear, sclera non-icteric, oral mucosa pink and moist Neck: supple, full ROM, no JVD, trachea is midline Resp: Lungs CTA, non-labored breathing CV: RRR, no murmur or rubs Abd: obese, mild lower distension, minimal tenderness suprapubic area to LLQ. Skin: no lesions or rashes, dry and intact Objective Labs Result Diagrams: 07/30/22 04:53 07/30/22 04:53 Labs: Laboratory Results - last 24 hr 07/29/22 07/29/22 07/29/22 16:32 16:32 20:04 WBC 6.4 RBC 4.81 Hgb 14.1 Hct 40.4 L MCV 84.0 MCH 29.4 MCHC 35.0 RDW 15.0 H Plt Count 138 L Neut % (Auto) 67.2 Lymph % (Auto) 22.0 L [place] % (Auto) 8.9 Eos % (Auto) 1.6 L Baso % (Auto) 0.3 Neut # (Auto) 4300 Lymph # (Auto) 1400 [place] # (Auto) 600 Eos # (Auto) 100 Baso # (Auto) 0 Sodium 136 L Potassium 4.4 Chloride 104 Carbon Dioxide 26 BUN 18 Creatinine 0.90 Estimated GFR > 60 BUN/Creatinine Ratio 20.0 Glucose 92 Calcium 9.0 Magnesium Total Bilirubin 0.8 AST 27 ALT 24 Alkaline Phosphatase 60 Total Protein 6.9 Albumin 4.2 Globulin 2.7 Albumin/Globulin Ratio 1.6 Lipase 536 H Urine Color Yellow Urine Appearance Sl cloudy Urine pH 7.0 Ur Specific [place] 1.015 Urine Protein Negative Urine Glucose (UA) Negative Urine Ketones Negative Urine Occult Blood Negative Urine Nitrate Negative Urine Bilirubin Negative Urine Urobilinogen 0.2 Ur Leukocyte Esterase Negative Urine RBC None seen Urine WBC 0-1/hpf Ur Squamous Epith Cells 0-1 /hpf Amorphous Sediment 2+ Urine Bacteria None seen Urine Mucus 2+ H Ur Culture Indicated? Cult not indicated SARS-CoV-2 (PCR) 07/29/22 07/30/22 07/30/22 21:35 04:53 04:53 WBC 4.4 L RBC 4.46 L Hgb 13.2 L Hct 37.5 L MCV 84.1 MCH 29.5 MCHC 35.1 RDW 15.2 H Plt Count 116 L Neut % (Auto) 65.4 Lymph % (Auto) 23.9 L [place] % (Auto) 8.2 Eos % (Auto) 2.2 Baso % (Auto) 0.3 Neut # (Auto) 2900 Lymph # (Auto) 1000 L [place] # (Auto) 400 Eos # (Auto) 100 Baso # (Auto) 0 Sodium 134 L Potassium 4.4 Chloride 101 Carbon Dioxide 29 BUN 20 Creatinine 0.98 Estimated GFR > 60 BUN/Creatinine Ratio 20.4 Glucose 111 H Calcium 8.4 Magnesium 2.1 Total Bilirubin 1.2 AST 23 ALT 20 Alkaline Phosphatase 49 Total Protein 6.3 Albumin 3.7 Globulin 2.6 Albumin/Globulin Ratio 1.4 Lipase Urine Color Urine Appearance Urine pH Ur Specific [place] Urine Protein Urine Glucose (UA) Urine Ketones Urine Occult Blood Urine Nitrate Urine Bilirubin Urine Urobilinogen Ur Leukocyte Esterase Urine RBC Urine WBC Ur Squamous Epith Cells Amorphous Sediment Urine Bacteria Urine Mucus Ur Culture Indicated? SARS-CoV-2 (PCR) Negative [facility] Surgical History (Updated 07/29/22 @ 23:24 by CLARICE Cheek) History of open reduction and internal fixation (ORIF) procedure Hx of arthroscopy Family History (Updated 07/29/22 @ 23:21 by CLARICE Cheek) Mother Alive and well Father COPD (chronic obstructive pulmonary disease) Social History household members: spouse Smoking Status: Former smoker alcohol intake: current Discharge Plan Discharge Plan Patient Disposition: Home Provider Discharge Comment: You were admitted to the hospital with diverticulitis with a small abscess. You improved with antibiotics and pain control. Please follow up with your PCP next week sometime to check on your symptoms. Please completely finish course of antibiotics. You may need to have colonoscopy in 6-8 weeks if symptoms resolve after this episode. Discharge orders & Medications Prescriptions: New ciprofloxacin HCl 500 mg tablet 500 mg PO BID 14 Days Qty: 28 0RF metronidazole 500 mg tablet 500 mg PO Q8H 14 Days Qty: 42 0RF ketorolac 10 mg tablet 10 mg PO Q8H PRN (Reason: pain) 7 Days Qty: 20 0RF Continued ASCORBIC ACID (VITAMIN C) 500 mg PO Q DAY Qty: 0 cholecalciferol (vitamin D3) [Vitamin D3] 2,000 UNIT capsule 1,000 iu PO Q DAY Qty: 0 Fish Oil (#OMEGA-3) 1,000 mg PO Q DAY Qty: 0 Follow up/Referrals: Basilio Omalley MD [Primary Care Provider] - Discharge Health Status Health Concerns: Diverticulitis Diet/Activity/Treatments Diet: Diet as Tolerated Activity: As tolerated Visit Report/Discharge Packet Instructions: DI for Diverticulitis Discharge Data Primary Care Provider: Basilio Omalley Quality VTE Deep Vein Thrombosis/Pulmonary Embolism Present on Admission: No
== END 2022-07-30 14:50 | disposition home or self-care (01) ==
LOC: ED 21:24 → AC 07-30 13:33
PROVIDERS: Emergency Medicine; Physician Assistant; Admitting Provider Nurse Practitioner Family; Emergency Provider Emergency Medicine; PCP Family Medicine; Referring Provider Emergency Medicine; Visit Provider Nurse Practitioner Family
DX: K57.20 Diverticulitis of large intestine with perforation and abscess without bleeding (principal); Z20.822 Contact with and (suspected) exposure to COVID-19; Z87.891 Personal history of nicotine dependence
CPT/HCPCS: 36415; 74177; 80053; 81001; 83690; 83735; 85025; 87635; 96365; 96366; 96367; 96372; 96375; 99284; C9803; G0378; J1644; J1885; J1956; J7050; Q9967

== ENCOUNTER → 2025-01-11 09:12 | Outpatient (CLI) | payer BC, SELFPAY ==
[2023-06-01 11:18] VITALS: BMI 38.4
--- NOTE | 2025-01-11 | DI.MRI.S_ITS ---
PROCEDURE: MR KNEE LT WO CON INDICATIONS: INTERNAL DERANGEMENT LT KNEE TECHNIQUE: Noncontrast sagittal PD fast spin echo and T2 fast spin echo with fat saturation, sagittal 3-D FLASH with fat saturation; coronal T1 spin echo and PD fast spin echo with fat saturation, and axial PD fast spin echo with fat saturation through the knee. COMPARISON: None. FINDINGS: Image quality: Diagnostic Menisci: Medial: Oblique and horizontal tear seen involving the body and posterior horn of the medial meniscus. High-grade root avulsion is also seen. Lateral: No significant tear Cruciate ligaments: Intact Medial structures: MCL: Mild periligamentous edema Pes anserine tendons: Mild bursal edema Semimembranosus: Intact Lateral structures: LCL: Mild proximal edema Biceps femoris: Intact IT band: Intact Popliteus tendon: Mild insertional tendinopathy Anterior structures: Extensor mechanism: Mild edema in the distal patellar tendon Fat pads: There is significant prepatellar edema. [id number] Hoffa's fat pad edema also present Medial retinaculum: Intact. Trochlea: Unremarkable morphology. Bone and joint: Bones: No acute fracture Cartilage: High-grade loss of the femoral trochlear cartilage. Surface fraying of the patellar cartilage. [id number] thinning and heterogeneity also seen in the medial and lateral compartments. Joint space: Moderate joint effusion with evidence of synovitis and debris Galvin's cyst: None Soft tissues: Diffuse mild soft tissue edema. IMPRESSION: Complex tear of the medial meniscus, with avulsion at the root. Sprain versus reactive edema of the collateral ligaments. Intact cruciate ligaments. Mild tendinopathy of the popliteus and patellar tendons. High-grade loss of the femoral trochlear cartilage. Heterogeneity and surface loss of the patellar, medial, and lateral compartment cartilage. Moderate joint effusion with debris and synovitis. Significant prepatellar soft tissue edema. [id number] Hoffa's fat pad edema. Mild pes anserine bursal edema. Dictated by: Aries Lofton M.D. on 01/13/2025 at 13:35 Approved by: Aries Lofton M.D. on 01/13/2025 at 13:44
== END ==
PROVIDERS: PCP Family Medicine; Referring Provider Family Medicine; Visit Provider Family Medicine
DX: S83.232A Complex tear of medial meniscus, current injury, left knee, initial encounter (principal); M23.92 Unspecified internal derangement of left knee; M25.462 Effusion, left knee
CPT/HCPCS: 73721